=== PATIENT | female | born 1995 | race African-American/Black ===

== ENCOUNTER 2019-07-28 09:35 | Emergency (ER) | payer OTHER ==
[2019-07-28 09:39] VITALS: BP 139/77; PULSE 89; TEMP 98.7; BMI 29.6
[2019-07-28] MEDS ORDERED: KETOROLAC TROMETHAMINE 30 MG/1 ML VIAL IM ONE (09:54)
[2019-07-28] MEDS ORDERED: CYCLOBENZAPRINE HCL 10 MG TABLET (FP) PO ONE (09:59)
[2019-07-28] MEDS ORDERED: KETOROLAC TROMETHAMINE 30 MG/1 ML VIAL ONE (09:59)
[2019-07-28] MEDS ORDERED: CYCLOBENZAPRINE HCL 10 MG TABLET (FP) ONE (09:59)
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
== END 2019-07-28 10:33 | disposition home or self-care (01) ==
LOC: JERFT 09:35
PROC: 3E0233Z Introduction of Anti-inflammatory into Muscle, Percutaneous Approach (ICD-10-PCS; principal; 2019-07-28)
DX: M54.6 Pain in thoracic spine (principal); V44.5XXA Car driver injured in collision with heavy transport vehicle or bus in traffic accident, initial encounter; Y92.414 Local residential or business street as the place of occurrence of the external cause; Y93.89 Activity, other specified; Y99.8 Other external cause status
CPT/HCPCS: 99281-25

== ENCOUNTER 2019-10-11 17:30 | Emergency (ER) | payer OTHER ==
--- NOTE | 2019-10-11 17:44 | PDOC ---
Rapid Medical Evaluation Time Seen by Provider: 10/11/19 17:40 Medical Evaluation: Allergies Allergy/AdvReac Type Severity Reaction Status Date / Time No Known Allergies Allergy Verified 07/28/19 09:39 10/11/19 17:41 I have performed a brief in-person evaluation of this patient. The patient presents with a chief complaint of: Mid lower abd pain x 2 days. Had 1 e/o n/v yesterday, since resolved. Menses came today but does not usually get cramps per pt. No dysuria, freq, vaginal discharge, n/v/f/c. No h/o similar pain Pertinent physical exam findings:stable, will defer rest of exam to ED provider I have ordered the following:labs/ua The patient will proceed to the ED for further evaluation. Discharge Disposition - Diagnosis Lower abdominal pain - Referrals - Patient Instructions - Post Discharge Activity
[2019-10-11 17:50] VITALS: BP 137/86; PULSE 74; TEMP 98.2; BMI 34.7
[2019-10-11] MEDS ORDERED: MAG HYDROX/AL HYDROX/SIMETH 30 ML UNIT-DOSE CUP PO ONE (18:07)
[2019-10-11] MEDS ORDERED: FAMOTIDINE 20 MG TABLET PO ONE (18:07)
--- NOTE | 2019-10-11 18:13 | PDOC ---
History of Present Illness - General Chief Complaint: Pain Stated Complaint: ABD PAIN Time Seen by Provider: 10/11/19 17:40 History Source: Patient Exam Limitations: No Limitations Past History - Past Medical History Allergies/Adverse Reactions: Allergies Allergy/AdvReac Type Severity Reaction Status Date / Time No Known Allergies Allergy Verified 10/11/19 17:46 Home Medications: Ambulatory Orders Cyclobenzaprine HCl [Flexeril -] 10 mg PO HS #7 tablet 07/28/19 Naproxen 500 gm MC BID #20 powder 07/28/19 COPD: No - Immunization History Immunization Up to Date: Yes - Psycho Social/Smoking Cessation Hx Smoking History: Never smoked Have you smoked in the past 12 months: No Information on smoking cessation initiated: No Hx Alcohol Use: Yes (SOCIAL) Drug/Substance Use Hx: No *Physical Exam - Vital Signs Last Vital Signs Temp Pulse Resp BP Pulse Ox 98.2 F 74 17 137/86 99 10/11/19 17:41 10/11/19 17:41 10/11/19 17:41 10/11/19 17:41 10/11/19 17:41 - Physical Exam General Appearance: No: Apparent Distress Respiratory/Chest: positive: Lungs Clear, Normal Breath Sounds. negative: Respiratory Distress Cardiovascular: positive: Regular Rhythm, Regular Rate, S1, S2. negative: Murmur Gastrointestinal/Abdominal: positive: Normal Bowel Sounds, Soft. negative: Tender, Distended, Guarding, Rebound Musculoskeletal: negative: CVA Tenderness Neurologic: positive: Alert, Normal Mood/Affect ED Treatment Course - LABORATORY CBC & Chemistry Diagram: 10/11/19 17:58 10/11/19 17:58 Medical Decision Making - Medical Decision Making 24 y/o F with no sig pmh presents with mid/lower abdominal cramping x 2 days along with 1 episode of NBNB emesis and 2 episode of loose stools 2 days ago. Symptoms started shortly after eating some wings and fries at [employer] 2 days ago. Has had no further episodes of vomiting or diarrhea. However, still has some abdominal cramping. Is able to keep herself hydrated with water and gatorade. Denies fever, sob, cp, urinary sxs. Surgical hx: Tummy tuck 3 years ago. Patient's menstrual cycle started today. Likely viral gastroenteritis Patient otherwise appears well Will check for Labs, urine sent from triage Will also give Moni Cummingsalox 10/11/19 18:11 Labs reviewed and unremarkable Patient feeling better after Maalox stable for dc 10/11/19 18:58 Discharge - Discharge Information Problems reviewed: Yes Clinical Impression/Diagnosis: Gastroenteritis Condition: Stable Disposition: HOME - Admission No - Additional Discharge Information Prescription Drug Monitoring Program (I-STOP) results: I-STOP not reviewed - Follow up/Referral - Patient Discharge Instructions Patient Printed Discharge Instructions: DI for Viral Gastroenteritis -- Adult Additional Instructions: Thank you for choosing [facility] [place]. It was a pleasure taking care of you. Continue to stay hydrated by drinking at least 2-3 L of water daily Eat light food like bananas, rice, applesauce, toast until feeling better Follow-up with your doctor in 2 days Return to the Emergency Department if your symptoms worsen or persist, you have fever, unable to keep down liquids or other concerning symptoms. - Post Discharge Activity Work/Back to School Note: Back to Work
[2019-10-11 18:18] LABS: BASO % 1.8 % (0-2.0); EOS % 1.6 % (0-4.5); HEMATOCRIT 38.4 % (32.4-45.2); HEMOGLOBIN 12.8 GM/dL (10.7-15.3); LYMPH % 31.9 % (8-40); MCH 27.9 pg (25.7-33.7); MCHC 33.2 g/dl (32.0-36.0); MONO % 9.2 % (3.8-10.2); NEUT % 55.5 % (42.8-82.8); PLATELET COUNT 244 K/MM3 (134-434); RBC 4.57 M/mm3 (3.60-5.2); RDW 12.5 % (11.6-15.6); WHITE BLOOD COUNT 4.7 K/mm3 (4.0-10.0)
[2019-10-11] MEDS ORDERED: MAG HYDROX/AL HYDROX/SIMETH 30 ML UNIT-DOSE CUP ONE (18:21)
[2019-10-11 18:24] LABS: PH,URINE 6.5 (5.0-8.0); URINE APPEARANCE CLEAR; URINE BILIRUBIN NEGATIVE (NEGATIVE); URINE COLOR YELLOW; URINE GLUCOSE (UA) NEGATIVE (NEGATIVE); URINE KETONE NEGATIVE (NEGATIVE); URINE LEUK ESTERASE NEGATIVE (NEGATIVE); URINE NITRITE NEGATIVE (NEGATIVE); URINE PROTEIN TRACE (NEGATIVE)
[2019-10-11 18:47] LABS: ALBUMIN 3.7 g/dl (3.4-5.0); BILIRUBIN,TOTAL 0.5 mg/dL (0.2-1); BLOOD UREA NITROGEN 9.1 mg/dL (7-18); CALCIUM 8.5 mg/dL (8.5-10.1); CREATININE 0.7 mg/dL (0.55-1.3); POTASSIUM 3.4 mmol/L (3.5-5.1); TOT PROT 7.4 g/dl (6.4-8.2)
== END 2019-10-11 19:05 | disposition home or self-care (01) ==
LOC: JER 17:30
DX: R10.30 Lower abdominal pain, unspecified (principal)
CPT/HCPCS: 36415; 80053; 81003; 84703; 85025; 87086; 87491; 87591; 99283-25